=== PATIENT | female | born 1950 | race Caucasian/White ===

== ENCOUNTER 2020-01-11 06:54 | Day surgery (SDC) | payer MEDICARE, OTHER ==
[~2020-01-11] VITALS: Ht 160 cm; Wt 86.0 kg
[~2020-01-11 06:54] MED LIST: HEParin (CATH LAB) 2,000 ML IV ONE; LIDOCAINE 1% INJ 20 ML 20 ML VIAL ONE
[2020-01-11] MEDS ORDERED: NS IV 1000 ML 1,000 ML IV SCH ×2 (07:00→10:23)
[2020-01-11 07:15] VITALS: BP 149/74
[2020-01-11 07:27] LABS: HEMOGLOBIN 14.4 G/DL (11.5-16.0); MEAN PLATELET VOLUME 10.9 FL (7.4-10.4); RED CELL DISTRIBUTION WIDTH 13.5 % (10.0-14.5); WHITE BLOOD COUNT 6.6 10^3/uL (4.3-11.0)
[2020-01-11] MEDS ORDERED: OMEP20TA7 PO (07:29)
[2020-01-11] MEDS ORDERED: CYAN500T44 PO (07:29)
[2020-01-11] MEDS ORDERED: ERGO400C PO (07:29)
[2020-01-11] MEDS ORDERED: BISO1TAB3 PO (07:29)
[2020-01-11] MEDS ORDERED: MV-M1TAB57 PO (07:29)
[2020-01-11] MEDS ORDERED: ASPI-586 PO (07:29)
[2020-01-11] MEDS ORDERED: PRAV20TA3 PO (07:29)
[2020-01-11] MEDS ORDERED: IBUP-1780 PO (07:29)
[2020-01-11 07:35] LABS: INR 0.9 (0.8-1.4); PROTHROMBIN TIME PATIENT 12.5 SEC (12.2-14.7)
[2020-01-11 07:43] LABS: ALANINE AMINOTRANSFERASE 25 U/L (0-55); ALBUMIN 4.3 GM/DL (3.2-4.5); ALKALINE PHOSPHATASE 71 U/L (40-136); BILIRUBIN,TOTAL 0.5 MG/DL (0.1-1.0); BUN/CREATININE RATIO 16; CALCIUM 9.2 MG/DL (8.5-10.1); CARBON DIOXIDE 25 MMOL/L (21-32); CHLORIDE 102 MMOL/L (98-107); CHOLESTEROL 193 MG/DL (< 200); GFR ESTIMATED > 60; GLUCOSE 98 MG/DL (70-105); HDL CHOLESTEROL 53 MG/DL (40-60); POTASSIUM 4.3 MMOL/L (3.6-5.0); SODIUM 136 MMOL/L (135-145); TOTAL PROTEIN 7.1 GM/DL (6.4-8.2); TRIGLYCERIDES 109 MG/DL (<150); VLDL CHOLESTEROL 22 MG/DL (5-40)
[2020-01-11] MEDS ORDERED: MIDAZOLAM 5 MG/5 ML (VERSED) VIAL ONE (08:12)
[2020-01-11] MEDS ORDERED: fentaNYL INJECTION 100 MCG/2 ML AMP ONE (08:13)
--- NOTE | 2020-01-11 10:05 | CARDIAC CATHETERIZATION ---
DATE OF SERVICE: 01/11/2020 CARDIAC CATHETERIZATION The patient is a 69-year-old lady who was found to have coronary calcification on a CT scan. Subsequent stress test was abnormal and suggestive of ischemia. Cardiac catheterization was recommended. Informed consent was obtained. DESCRIPTION OF PROCEDURE: She was brought to the cardiac catheterization laboratory in a fasting state. Right groin was prepared and draped in the usual sterile fashion. Lidocaine 1% was used for local anesthesia. Modified Seldinger technique was used to advance a 5-Lebanese sheath in the right femoral artery, 5-Lebanese JL4 catheter for left coronary angiography, 5-Lebanese JR4 catheter for right coronary angiography, 5-Lebanese pigtail catheter was used for left heart catheterization and left ventricular angiography. Angiography of right femoral artery was carried out through the sheath. Manual pressure was used to achieve hemostasis following sheath removal. HEMODYNAMICS: Left ventricular end-diastolic pressure following coronary angiography was 9 mmHg. There is no significant pressure gradient on pullback across the aortic valve. Ascending aortic pressure was 109/50 with a mean of 76 mmHg. CORONARY ANGIOGRAPHY: Coronary calcification is seen. Left main coronary artery has 70% to 80% ostial and proximal stenosis. Left anterior descending and left circumflex arteries do not have significant focal stenoses. Right coronary artery is occluded in its proximal portion. LEFT VENTRICULAR ANGIOGRAPHY: Left ventricular angiography was carried out in the right anterior oblique projection. Global left ventricular systolic function is normal. Left ventricular ejection fraction is approximately 65%. CONCLUSIONS: 1. Coronary artery disease consisting of 70% to 80% ostial and proximal stenosis in the left main and proximal occlusion of the right coronary. 2. Normal left ventricular end-diastolic pressure. 3. Normal global left ventricular systolic function with an ejection fraction approximately 65%. DISCUSSION AND RECOMMENDATIONS: Based on results of the study, coronary artery bypass surgery appears to be the best treatment option. We are making a referral to cardiovascular surgery. Job ID: [id number] DocumentID: [id number] Dictated Date: 01/11/2020 09:45:21 Meat Process Worker Date: 01/11/2020 10:05:12 Dictated By: RAUL GOODE MD, MA, FACP, FACC,
--- NOTE | 2020-01-11 10:23 | Cardiac Procedure Note-CS/ASA ---
Pre-Procedure Note Pre-Op Procedure Note H&P Reviewed The H&P was reviewed, patient examined and no changes noted. Date H&P Reviewed: Jan 11, 2020 Time H&P Reviewed: 09:00 Conscious Sedation Pre-Proced Time 09:00 ASA Score 3 For ASA 3 and 4: Consider anesthesia and medical clearance. Also, for patients with a history of failed moderate sedation consider anesthesia. Airway Lungs Heart ASA score ASA 1: a normal healthy patient ASA 2: a patient with a mild systemic disease (mid diabetes, controlled hypertension, obesity ASA 3: a patient with a severe systemic disease that limits activity (angina, COPD, prior Myocardial infarction) ASA 4: a patient with an incapacitating disease that is a constant threat to life (CHF, renal failure) ASA 5: a moribund patient not expected to survive 24 hrs. (ruptured aneurysm) ASA 6: a declared brain- patient whose organs are being harvested. For emergent operations, add the letter E after the classification Mallampati Classification Grade 2 Sedation Plan Analgesia, Amnesia, Plan communicated to team members, Discussed options with patient/fam, Discussed risks with patient/fam The patient is an appropriate candidate to undergo the planned procedure, sedation, and anesthesia. The patient immediately re-assessed prior to indication. RAUL GOODE MD FACP FAC CCDS Jan 11, 2020 10:23
--- NOTE | 2020-01-11 10:28 | Cardiology Discharge Summary ---
Diagnosis/Chief Complaint Date of Admission 01/11/2020 Date of Discharge 01/11/2020 Admission Diagnosis CAD, as indicated by coronary calcium score of 594 and subsequent abnormal str ess test H/o tobacco use, quit in 2017 H/o hyperlipidemia Final/Discharge Diagnosis CAD. Cath of 01/11/20: 70-80% ostial and prox LM, 100% prox RCA, LVEF 65%, LVEDP 9 mmHg H/o smoking, quit around 2017 H/o hyperlipidemia Chief Complaint/HPI Chief Complaint/HPI Referring for CABG. Spoke with Dr Irene at [facility]. He accepts Discharge Summary Procedures None. Hospital Course Pending Labs Laboratory Tests 01/11/20 07:17: White Blood Count 6.6, Red Blood Count 4.51, Hemoglobin 14.4, Hematocrit 43, Mean Corpuscular Volume 95, Mean Corpuscular Hemoglobin 32, Mean Corpuscular Hemoglobin Concent 34, Red Cell Distribution Width 13.5, Platelet Count 193, Mean Platelet Volume 10.9, Prothrombin Time 12.5, INR Comment 0.9, Activated Partial Thromboplast Time 38, Sodium Level 136, Potassium Level 4.3, Chloride Level 102, Carbon Dioxide Level 25, Anion Gap 9, Blood Urea Nitrogen 13, Creatinine 0.80, Estimat Glomerular Filtration Rate > 60, BUN/Creatinine Ratio 16, Glucose Level 98, Calcium Level 9.2, Corrected Calcium 9.0, Total Bilirubin 0.5, Aspartate Amino Transf (AST/SGOT) 21, Alanine Aminotransferase (ALT/SGPT) 25, Alkaline Phosphatase 71, Total Protein 7.1, Albumin 4.3, Triglycerides Level 109, Cholesterol Level 193, LDL Cholesterol Direct 141, VLDL Cholesterol 22, HDL Cholesterol 53 Discussion & Recommendations Home Medications Reviewed patient Home Medication Reconciliation performed by pharmacy medication reconciliations aviation survival technician and/or nursing. Patients Allergies have been reviewed. Discharge Home Medications: Reviewed and agree with Discharge Medication list on patient's Discharge Instruction sheet RAUL GOODE MD FACP FAC CCDS Jan 11, 2020 10:28
[2020-01-11] MEDS ORDERED: PATIENT MAY USE OWN MEDS, ALL PO SCH (10:30)
--- NOTE | 2020-01-11 10:30 | NUR ---
Pt arrived to ICU room 5 at this time. Assessment performed see patient assessment flow sheet for details. Pt arrived with personal belongings from research laboratory technician at this time. Pt is currently awaiting bed at [facility] for CABG.
[2020-01-11 10:45] VITALS: BP 106/98
[2020-01-11 11:00] VITALS: BP 163/108
--- NOTE | 2020-01-11 11:00 | NUR ---
[facility] call, called at this time by this RN to assess bed status for patient. Pt currently waiting bed at [facility] at this time.
[2020-01-11 12:00] VITALS: BP 148/91
[2020-01-11] MEDS ORDERED: ACETAMINOPHEN 325 MG TABLET ONE (12:34)
[2020-01-11] MEDS ORDERED: ACETAMINOPHEN 325 MG TABLET PO PRN (12:45)
[2020-01-11 13:00] VITALS: BP 160/66
--- NOTE | 2020-01-11 13:00 | NUR ---
Room number received from [facility] call at this time. Pt to be transferred to room 212 on cardiology.
--- NOTE | 2020-01-11 13:05 | NUR ---
[facility] notified of pt transfer at this time.
--- NOTE | 2020-01-11 13:20 | NUR ---
Report called to HANSA Santo at [facility] Cardiology Unit at this time.
[2020-01-11 14:00] VITALS: BP 150/74
--- NOTE | 2020-01-11 14:15 | NUR ---
EMS arrived at this time to transfer pt to [facility]. VSS prior to transfer. Personal belongings with pt at time of transfer.
== END 2020-01-11 14:15 | disposition short-term general hospital (02) ==
LOC: CATH 06:54 → ICU 10:29 → CATH 14:15
PROVIDERS: ATTEND Internal Medicine Cardiovascular Disease
DX: I25.10 Atherosclerotic heart disease of native coronary artery without angina pectoris (principal); Z11.2 Encounter for screening for other bacterial diseases; I10 Essential (primary) hypertension; E78.5 Hyperlipidemia, unspecified; Z87.891 Personal history of nicotine dependence; Z79.82 Long term (current) use of aspirin; Z79.899 Other long term (current) drug therapy
CPT/HCPCS: 36415; 80053; 80061; 85027; 85610; 85730; 87081; 93458

== ENCOUNTER 2022-11-07 16:20 | Emergency (ER) | payer MEDICARE, OTHER ==
[~2022-11-07] VITALS: Ht 163 cm; Wt 79.0 kg
[~2022-11-07 16:20] MED LIST changes: +ASPI-586 PO; +BISO-2 PO; +CYAN500T44 PO; +ERGO400C PO; -HEParin (CATH LAB) 2,000 ML IV ONE; +IBUP-1780 PO; -LIDOCAINE 1% INJ 20 ML 20 ML VIAL ONE; +MV-M1TAB57 PO; +OMEP20TA56 PO; +PRAV20TA3 PO
[2022-11-07] MEDS ORDERED: TETANUS,DIPTH,PERTUSS P/F (BOOSTRIX) 0.5 ML VIAL IM ONE (16:30)
[2022-11-07] MEDS ORDERED: AMOX1TAB12 PO (16:56)
--- NOTE | 2022-11-07 16:58 | ED Integumentary General ---
General Chief Complaint: Bite-Animal/Human/Insect Stated Complaint: DOG BITE A PIECE OF HER EAR OFF Nursing Triage Note: Pt ambulatory to ER with c/o dog bite to the right ear at approx 1615. Source: patient Exam Limitations: no limitations History of Present Illness Date Seen by Provider: Nov 07, 2022 Time Seen by Provider: 16:40 Initial Comments Patient is a 72-year-old female who presents to the emergency department today with a chief complaint of dog bite to the right ear. Patient states that she came up behind her 15-year-old Coon hound, he turned around and snapped at her ear. She did bring the piece of her ear that was bitten off in a little plastic baggie. she states her last tetanus shot was somewhere around 5 years ago. She is not allergic to any antibiotics. She denies any other complaints of illness or injury. Timing/Duration: just prior to arrival Severity: moderate Location: face (right ear) Possible Cause: other (dog bite) Associated Symptoms: denies symptoms Allergies and Home Medications Allergies Coded Allergies: blueberry (Unverified Allergy, Unknown, 01/11/20) oxycodone (Unverified Allergy, Unknown, 01/11/20) Patient Home Medication List Home Medication List Reviewed: Yes Amoxicillin/Potassium Clav (Amox Tr-K Clv 875-125 mg Tab) 875 Mg-125 Mg Tablet, 1 EACH PO BID Prescribed by: MIGUEL YOUNG on 11/07/22 1656 Aspirin (Aspir 81) 81 Mg Tablet.dr, 81 MG PO DAILY, (Reported) Entered as Reported by: SUE ZHONG on 01/11/20728 Bisoprolol Fumarate/Hctz (Bisoprolol-Hctz 5-6.25 mg Tab) 1 Each Tablet, 1 EACH P O DAILY, (Reported) Entered as Reported by: SUE ZHONG on 01/11/20728 Cholecalciferol (Vitamin D3) (Vitamin D3) 10 Mcg Capsule, 10 MCG PO DAILY, (Reported) Entered as Reported by: SUE ZHONG on 01/11/20728 Cyanocobalamin (Vitamin B-12) (B-12) 500 Mcg Tablet, 500 MCG PO DAILY, (Reported) Entered as Reported by: SUE ZHONG on 01/11/20728 Ibuprofen (Ibuprofen) 800 Mg Tablet, 800 MG PO BID PRN for PAIN-MILD, (Reported) Entered as Reported by: SUE ZHONG on 01/11/20728 Mv-Mn/Folic Acid/Calcium/Vit K (Women's 50 Plus Multivit Tab) 1 Each Tablet, 1 EACH PO DAILY, (Reported) Entered as Reported by: SUE ZHONG on 01/11/20728 Omeprazole (Omeprazole) 20 Mg Tablet.dr, 20 MG PO DAILY, (Reported) Entered as Reported by: SUE ZHONG on 01/11/20728 Pravastatin Sodium (Pravastatin Sodium) 20 Mg Tablet, 20 MG PO DAILY, (Reported) Entered as Reported by: SUE ZHONG on 01/11/20728 Review of Systems Review of Systems Constitutional: no symptoms reported EENTM: ear pain Past Qwkbzdw-Gsrcoe-Myrnts Hx Patient Social History Tobacco Use?: Yes Tobacco type used: Cigarettes Smoking Status: Current Everyday Smoker Substance use?: No Alcohol Use?: Yes Alcohol Frequency: Rarely Immunizations Up To Date Tetanus Booster (TDap): Less than 5yrs 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: [employer] Past Medical History Adenoidectomy Respiratory: No Hypertension Neurological: No Genitourinary: No Gastrointestinal: No Cancer: No Physical Exam Vital Signs Vital Signs - First Documented 11/07/22 11/07/22 16:28 19:35 Temp 36.7 Pulse 75 Resp 18 B/P (MAP) 169/79 (109) Pulse Ox 97 O2 Delivery Room Air Capillary Refill : Less Than 3 Seconds General Appearance: WD/WN, no apparent distress HEENT: PERRL/EOMI Neck: full range of motion, normal inspection Cardiovascular: regular rate, rhythm Respiratory: no respiratory distress, no accessory muscle use Neurologic/Psychiatric: alert, normal mood/affect, oriented x 3 Skin: other (findings consistent with animal bite to right auricle with stellate injury to the superior third of the auricle. 1cm triangular area avuls ed from the apex; exposed cartilage. stellate bite wound; no active bleeding.) Procedures/Interventions Wound Location: Ears Other Wound Location apex of right pinna Wound Length (cm): 6 Wound's Depth, Shape: stellate (through cartilage), contused tissue Wound Explored: clean Irrigated w/ Saline (ccs): 100 Anesthesia: 1% Lidocaine, 0.5% Sensorcaine Volume Anesthetic (ccs): 10 Wound Debrided: moderate Suture: Chromic (6-0), Prolene (6-0) Suture Size: 6-0 (11 chromic sutures; 5 prolene) Number of Sutures: 17 Sterile Dressing Applied?: Yes Progress Darcy-auricular block done with lidocaine and bupivicaine; total 10ml; Portions of skin and cartilage debrided to facilitate wound margins and approximation of margins. Lengthy amount of time (2.5hr) to debride and suture tissues. S ignificant portion of of upper cartilage was missing and skin tissues surrounding were difficult to approximate. Progress/Results/Core Measures Results/Orders My Orders Orders - MIGUEL YOUNG MD Dipht,Pertuss(Acell),Tet Adult (Boostrix (11/07/22 16:30) Lidocaine 1% Inj 20 Ml (Xylocaine 1% Inj (11/07/22 17:00) Amoxicillin/Clavulanate Tablet (Augmenti (11/07/22 19:17) Ibuprofen Tablet (Motrin Tablet) (11/07/22 19:30) Medications Given in ED Vital Signs/I&O 11/07/22 11/07/22 16:28 19:35 Temp 36.7 Pulse 75 71 Resp 18 16 B/P (MAP) 169/79 (109) 145/71 Pulse Ox 97 98 O2 Delivery Room Air Room Air Blood Pressure Mean: 109 Progress Progress Note : Progress Note periauricular block to right ear with lidoaine/bupivicaine. WOund cleansed with betasept and saline. Irrigated extensively. Significant amount of time taken regarding wound repair. I did discuss with Muriel Leiva NP - the midlivel on for TIARA [place]. I spent quite a while in preparation of repair, irrigating and debriding non viable wound margins. Complex repair of the pinn took approx 2.5hr. Bleeding controlled. Triple antibiotic ointment to the wound post closure. All areas of cartilage covered with skin. Compressive dressing applied with gauze both behind the right ear and in front of it. Patient tolerated the closure well. I did advise the patient about the cosmetic appearance of the wound being less than ideal due to baseline loss of tissue.. Stressed the importance of wound care, re-visits to assess healing. Referred to Dr High ENT for follow-up. Patient given Augmentin prescription for the dog bite. Departure Impression Primary Impression: Dog bite of right ear Qualified Codes: S01.351A - Open bite of right ear, initial encounter; W54.0XXA - Bitten by dog, initial encounter Additional Impression: Complex laceration of ear Qualified Codes: S01.311A - Laceration without foreign body of right ear, initial encounter Disposition: HOME, SELF-CARE Condition: Improved Departure-Patient Inst. Decision time for Depature: 19:30 Referrals: EDER HIGH MD, RANDY E MD (PCP) Primary Care Physician Patient Instructions: Wound Care ED, Animal Bites ED Add. Discharge Instructions: Please keep the right ear wound clean dry and covered for the next 24 to 48 hours. Please keep pressure dressing with a little gauze behind your ear and a dressing over the front of your ear will create a nice compress. Triple antibiotic ointment over the stitches for 24 to 48 hours when you change the dressing. Wash very gently, just pat with warm soap and water, no need to get rid of all of the dried blood. Do not rub. You will need to have a wound check in 2 to 3 days, I would recommend coming back to the emergency department, it is part of this visit. The stitches will need to come out in 5 to [address] High's office on Friday morning for him to further evaluate the wound. Take the antibiotics, Augmentin twice daily for 5 days. Come back to the emergency department sooner if you experience increased pain in your ear, redness, swelling, fever or pus like drainage. You can take [id number] Tylenol and/or ibuprofen for pain. Cold compresses will also help with swelling and discomfort. Scripts Amoxicillin/Potassium Clav (Amox Tr-K Clv 875-125 mg Tab) 875 Mg-125 Mg Tablet 1 EACH PO BID for 10 Days, #5 TAB Prov: MIGUEL YOUNG MD 11/07/22 MIGUEL YOUNG MD Nov 07, 2022 16:58
[2022-11-07] MEDS ORDERED: LIDOCAINE 1% INJ 20 ML VIAL INJ ONE (17:00)
[2022-11-07] MEDS ORDERED: AUGMENTIN 875 MG TAB (AMOXICILLIN/CLAVULANATE) PO STA (19:17)
[2022-11-07] MEDS ORDERED: IBUPROFEN 600 MG (MOTRIN) TAB PO ONE (19:30)
[2022-11-07 19:35] VITALS: BP 145/71
== END 2022-11-07 19:38 | disposition home or self-care (01) ==
LOC: EDUNIT# 16:20 → ER 16:21
DX: S01.351A Open bite of right ear, initial encounter (principal); S01.311A Laceration without foreign body of right ear, initial encounter; F17.210 Nicotine dependence, cigarettes, uncomplicated; Z23 Encounter for immunization; W54.0XXA Bitten by dog, initial encounter
CPT/HCPCS: 12032; 13152; 90715

== ENCOUNTER 2022-11-14 09:02 | Emergency (ER) | payer MEDICARE, OTHER ==
[~2022-11-14 09:02] MED LIST changes: +AMOX1TAB12 PO
[2022-11-14 09:27] VITALS: BP 158/81
== END 2022-11-14 09:30 | disposition home or self-care (01) ==
LOC: EDUNIT# 09:02 → ER 09:04
DX: Z48.02 Encounter for removal of sutures (principal)

== ENCOUNTER 2022-11-22 09:48 | Emergency (ER) | payer MEDICARE, OTHER ==
[2022-11-22 10:00] VITALS: BP 146/81
== END 2022-11-22 10:10 | disposition home or self-care (01) ==
LOC: EDUNIT# 09:48 → ER 09:50
DX: Z48.02 Encounter for removal of sutures (principal)

== ENCOUNTER → 2023-05-16 | Outpatient (CLI) | payer MEDICARE, OTHER ==
--- NOTE | 2023-05-19 10:34 | Diagnostic Imaging Report ---
INDICATION: Routine screening. COMPARISON: 02/19/2018 and 01/27/2019. TECHNIQUE: 2D and 3D bilateral screening mammography was performed with CAD. FINDINGS: Scattered fibroglandular densities are identified bilaterally. The parenchymal pattern is stable. No mass or malignant-appearing microcalcifications are seen. There are scattered benign calcifications. The axillae are unremarkable. IMPRESSION: No mammographic features suspicious for malignancy are identified. ACR BI-RADS Category 2: Benign findings. Result letter will be mailed to the patient. Note: At least 10% of breast cancer is not imaged by mammography. Dictated by: Dictated on workstation # [id number]
== END ==
LOC: RAD 08:00
PROVIDERS: ATTEND Internal Medicine
DX: Z12.31 Encounter for screening mammogram for malignant neoplasm of breast (principal)
CPT/HCPCS: 77063; 77067